=== PATIENT | female | born 1970 | race Caucasian/White ===

== ENCOUNTER → 2016-08-13 | Outpatient (CLI) | payer OTHER ==
--- NOTE | 2016-08-17 08:43 | MM ---
Reason for exam: screening (asymptomatic). Last mammogram was performed 2 years ago. History: Patient history of other cancer. Family history of breast cancer in 3 paternal aunts. Took hormonal contraceptives for 1 year. Physical Findings: A clinical breast exam by your physician is recommended on an annual basis and results should be correlated with mammographic findings. MG Screening Mammo w CAD Bilateral CC and MLO view(s) were taken. Prior study comparison: August 27, 2014, bilateral MG screening mammo w CAD. April 17, 2013, bilateral digital screening mammo w/CAD. Finding: There are typically benign round, grouped calcifications in the lower inner quadrant, middle position of the left breast, stable from 2014. No significant changes in finding since August 27, 2014 and April 17, 2013. ASSESSMENT: Benign, BI-RAD 2 RECOMMENDATION: Routine screening mammogram of both breasts in 1 year.
== END | disposition home or self-care (01) ==
LOC: RADMAMWWP 09:33
PROVIDERS: ATTEND Family Medicine
DX: Z12.31 Encounter for screening mammogram for malignant neoplasm of breast (principal)

== ENCOUNTER → 2016-08-25 | Day surgery (SDC) | payer OTHER ==
[2016-08-24 09:12] VITALS: BMI 43.5
[~2016-08-25] MED LIST: LACTATED RINGERS 1,000 ML IV SCH; LIDOCAINE 1% 20 ML VIAL (10MG/ML) FOR IV START INTRADERMA PRN; LIDOCAINE 1% INJ 10MG/ML (20 ML MDV) ONE; MIDAZOLAM 2 MG/2 ML VIAL ONE; PROPOFOL 10 MG/ML 20 ML VIAL IV ONE; fentaNYL (PF) 50 MCG/ML 2 ML AMP ONE
[2016-08-25 08:54] VITALS: TEMP 97
[2016-08-25 08:57] LABS: Glucose,Whole Blood 129 mg/dL (75-99)
--- NOTE | 2016-08-25 10:14 | P.GSHP ---
History of Present Illness H&P Date: 08/25/16 Chief Complaint: Epigastric abdominal pain This a 46-year-old female referred from Dr. Nielson. Patient with complaints of epigastric abdominal pain. She presents today for EGD. She's had a recent left nephrectomy. - Constitutional Constitutional: Reports as per HPI Past Medical History Past Medical History: Diabetes Mellitus, Hearing Disorder / Deafness, Hypertension, Osteoarthritis (OA), Sleep Apnea/CPAP/BIPAP Additional Past Medical History / Comment(s): MIGRAINE HEADACHE, C PAP, CHRONIC BACK PAIN History of Any Multi-Drug Resistant Organisms: None Reported Past Surgical History: Back Surgery Additional Past Surgical History / Comment(s): perianal surgery, LEFT KIDNEY REMOVED Past Anesthesia/Blood Transfusion Reactions: Family History of Problems w/ Anesthesia, Motion Sickness Additional Past Anesthesia/Blood Transfusion Reaction / Comment(s): BROTHER "IS HARD TO PUT UNDER, AND HARD TO WAKE UP." Past Psychological History: Anxiety, Depression Smoking Status: Former smoker Past Alcohol Use History: Rare Additional Past Alcohol Use History / Comment(s): STARTED SMOKING AT AGE 18 SMOKED ON/OFF 20 YEARS, 1/2 PPD, QUIT 2010. Past Drug Use History: Marijuana Additional Drug Use History / Comment(s): OCC USE FOR PAIN MEDICAL CARD - Past Family History Mother Family Medical History: No Reported History Medications and Allergies Home Medications Medication Instructions Recorded Confirmed Type Diazepam [Valium] 2 mg PO TID PRN 06/26/14 08/25/16 History Bisoprolol-Hctz 5-6.25 mg [Ziac 1 each PO HS 02/11/16 08/25/16 History 5-6.25] Losartan Potassium [Cozaar] 50 mg PO HS 02/11/16 08/25/16 History Venlafaxine HCl ER [Effexor Xr] 150 mg PO HS 02/11/16 08/25/16 History metFORMIN HCL [Glucophage] 500 mg PO BID 08/24/16 08/25/16 History Allergies Allergy/AdvReac Type Severity Reaction Status Date / Time pregabalin [From Lyrica] Allergy SWELLING Verified 08/25/16 08:50 LEG, ANKLES acetaminophen [From Vicodin] AdvReac Rash/Hives Verified 08/25/16 08:50 codeine AdvReac Itching Verified 08/25/16 08:50 [From Tylenol-Codeine #3] gabapentin [From Neurontin] AdvReac FELT Verified 08/25/16 08:50 SLUGGISH, SICK hydrocodone bitartrate AdvReac Rash/Hives Verified 08/25/16 08:50 [From Vicodin] morphine AdvReac Itching Verified 08/25/16 08:50 Penicillins AdvReac Rash/Hives Verified 08/25/16 08:50 Surgical - Exam Vital Signs Temp Pulse BP Pulse Ox 97 F L 78 112/68 98 08/25/16 08:52 08/25/16 08:52 08/25/16 08:52 08/25/16 08:52 - General well developed, no distress - Eyes PERRL - ENT normal pinna - Neck no masses - Respiratory normal expansion - Cardiovascular Rhythm: regular - Abdomen Abdomen: soft, non tender Results - Labs Abnormal Lab Results - Last 24 Hours (Table) 08/25/16 Range/Units 08:53 POC Glucose (mg/dL) 129 H (75-99) mg/dL Assessment and Plan Plan: History of epigastric abdominal pain. We'll perform EGD.
--- NOTE | 2016-08-25 10:27 | P.OP ---
Date of Procedure: 08/25/16 Preoperative Diagnosis: Epigastric abdominal pain Postoperative Diagnosis: Antral gastritis Procedure(s) Performed: EGD Anesthesia: MAC Surgeon: Nico Sommers Pathology: other (Antrum, esophagus) Condition: stable Disposition: PACU Description of Procedure: The patient's placed on the endoscopy table in the lateral position. She received IV sedation. The gastroscope some placed oropharynx and passed into the esophagus and into the stomach. The scope was then placed through the pylorus. The first and second portion of the duodenum appeared normal. Scope was then brought back the antrum and this appeared mildly inflamed a biopsies was performed. The scope was then retroflexed and remainder stomach appeared normal. There was no hiatal hernia seen. The GE junction was at 40 cm. The distal esophagus appeared mildly inflamed a biopsies was performed. The proximal esophagus appeared normal. Scope was withdrawn for patient.
[2016-08-25 10:38] VITALS: BP 115/72; PULSE 61; RESP 16
[2016-08-25 10:45] LABS: Glucose,Whole Blood 112 mg/dL (75-99)
--- NOTE | 2016-08-25 14:21 | NM ---
EXAMINATION TYPE: NM hepatobiliary w EF DATE OF EXAM: 08/25/2016 1:48 PM COMPARISON: CT scan dated 31 January 2016 HISTORY: Abdominal pain TECHNIQUE: After the intravenous administration of 5.03 mCi Tc 99m Mebrofenin hepatobiliary scintigra phy is performed. Immediate images post injection. FINDINGS: There is satisfactory initial accumulation of tracer by the liver. The gallbladder is visualized wit hin 15 minutes. The small bowel activity is noted following Ensure administration. At one hour 8 ou nces of oral ensure plus is given to mimic CCK and gallbladder ejection fraction is calculated at 59 %, in the normal range. Therefore there is no scintigraphic evidence of cystic or common bile duct o bstruction to suggest acute cholecystitis or gallbladder dyskinesia. IMPRESSION: Delayed visualization of the small bowel. Gallbladder ejection fraction within normal bosch its. No cystic duct obstruction
== END ==
LOC: ORWHC2ENDO 08:19
PROVIDERS: ATTEND Surgery
DX: K29.70 Gastritis, unspecified, without bleeding (principal); K20.9 Esophagitis, unspecified; E11.9 Type 2 diabetes mellitus without complications; H91.90 Unspecified hearing loss, unspecified ear; I10 Essential (primary) hypertension; M19.90 Unspecified osteoarthritis, unspecified site; G47.30 Sleep apnea, unspecified; G43.909 Migraine, unspecified, not intractable, without status migrainosus; G89.29 Other chronic pain; F41.9 Anxiety disorder, unspecified; F32.9 Major depressive disorder, single episode, unspecified; E66.01 Morbid (severe) obesity due to excess calories; Z79.84 Long term (current) use of oral hypoglycemic drugs; Z79.899 Other long term (current) drug therapy; Z88.8 Allergy status to other drugs, medicaments and biological substances; Z88.5 Allergy status to narcotic agent; Z88.0 Allergy status to penicillin; Z87.891 Personal history of nicotine dependence
CPT/HCPCS: 81025; 88305; 78226; 43239; A9537; J2250; J2001; J3010; J2704

== ENCOUNTER 2017-07-28 15:41 | Emergency (ER) | payer OTHER ==
[2017-07-28] MEDS ORDERED: SODIUM CHLORIDE 0.9% 1,000 ML IV ONE (15:53)
[2017-07-28 16:00] LABS: Glucose,Whole Blood 182 mg/dL (75-99)
--- NOTE | 2017-07-28 16:00 | ED ---
General Adult HPI - General Chief complaint: Recheck/Abnormal Lab/Rx Stated complaint: Hyperglycemia Time Seen by Provider: 07/28/17 15:47 Source: patient Mode of arrival: ambulatory Limitations: no limitations - History of Present Illness Initial comments: This is a 47-year-old female with a history of diabetes who presents emergency department for generalized malaise and hyperglycemia. She states that the hyperglycemia has been going on for the last week. She states that she has been running in the 200s. She states that she has been under quite a bit of stress over the last week and feels that this may be causing her hyperglycemia. She is unsure if she has had weight gain and she does check her sugars regularly and usually she is below 200. She states that she has not had any nausea, vomiting, or diarrhea. No fevers or chills. No cough or shortness of breath. She does have a history of nephrectomy in the past secondary to renal artery stenosis. She states that she is on metformin 500 mg twice a day and was instructed not to increase this dose because of her history of only having one kidney. She denies any urinary frequency or polydipsia. No other acute complaints. - Related Data Home Medications Medication Instructions Recorded Confirmed Bisoprolol-Hctz 5-6.25 mg [Ziac 1 tab PO HS 02/11/16 07/28/17 5-6.25] Losartan Potassium [Cozaar] 50 mg PO HS 02/11/16 07/28/17 Venlafaxine HCl ER [Effexor Xr] 150 mg PO HS 02/11/16 07/28/17 metFORMIN HCL [Glucophage] 500 mg PO BID 08/24/16 07/28/17 Multivitamin [Multivitamins Adult 2 tab PO HS 07/28/17 07/28/17 Gummies] Allergies Allergy/AdvReac Type Severity Reaction Status Date / Time pregabalin [From Lyrica] Allergy SWELLING Verified 07/28/17 16:15 LEG, ANKLES acetaminophen [From Vicodin] AdvReac Rash/Hives Verified 07/28/17 16:15 codeine AdvReac Itching Verified 07/28/17 16:15 [From Tylenol-Codeine #3] gabapentin [From Neurontin] AdvReac FELT Verified 07/28/17 16:15 SLUGGISH, SICK hydrocodone bitartrate AdvReac Rash/Hives Verified 07/28/17 16:15 [From Vicodin] morphine AdvReac Itching Verified 07/28/17 16:15 Penicillins AdvReac Rash/Hives Verified 07/28/17 16:15 Review of Systems ROS Statement: Those systems with pertinent positive or pertinent negative responses have been documented in the HPI. ROS Other: All systems not noted in ROS Statement are negative. Past Medical History Past Medical History: Diabetes Mellitus, Hearing Disorder / Deafness, Hypertension, Osteoarthritis (OA), Sleep Apnea/CPAP/BIPAP Additional Past Medical History / Comment(s): MIGRAINE HEADACHE, C PAP, CHRONIC BACK PAIN History of Any Multi-Drug Resistant Organisms: None Reported Past Surgical History: Back Surgery Additional Past Surgical History / Comment(s): perianal surgery, LEFT KIDNEY REMOVED Past Anesthesia/Blood Transfusion Reactions: Family History of Problems w/ Anesthesia, Motion Sickness Additional Past Anesthesia/Blood Transfusion Reaction / Comment(s): BROTHER "IS HARD TO PUT UNDER, AND HARD TO WAKE UP." Past Psychological History: Anxiety, Depression Smoking Status: Former smoker Past Alcohol Use History: Rare Past Drug Use History: Marijuana - Past Family History Mother Family Medical History: No Reported History General Exam - General Exam Comments Initial Comments: Constitutional: Awake alert Appears comfortable Head: Normocephalic atraumatic Eyes: no conjunctival injection No scleral icterus EOMI Neck: No JVD Supple Heart: Regular rate rhythm normal S1-S2 no murmurs Lungs: Clear to auscultation bilaterally No wheezing No rales Abdomen: Soft nondistended nontender Extremities: Non edematous DP pulses intact Radial pulses intact Neuro: A&Ox3 No focal neurologic deficits Psych: Appropriate mood and affect Limitations: no limitations Course Vital Signs 07/28/17 15:45 Temperature 98.0 F Pulse Rate 65 Respiratory 18 Rate Blood Pressure 174/82 O2 Sat by Pulse 98 Oximetry Medical Decision Making - Medical Decision Making This 47-year-old female came to the emergency department for hyperglycemia. She was evaluated with blood work which was mostly unremarkable except for some mild hyperglycemia. She was given 1 L of fluid and had significant improvement in her symptoms and felt much better. Her sugar improved to 150 after IV fluids. I encouraged her to drink plenty fluids over the next few days. She is have a follow-up appointment with her primary doctor. She may need to increase her metformin or be started on different medication. Told to return if she had fevers or any worsening signs or symptoms. All questions were answered. - Lab Data Result diagrams: 07/28/17 15:58 07/28/17 15:58 Lab Results 07/28/17 07/28/17 07/28/17 Range/Units 15:55 15:58 15:58 WBC 8.8 (3.8-10.6) k/uL RBC 4.98 (3.80-5.40) m/uL Hgb 13.2 (11.4-16.0) gm/dL Hct 40.0 (34.0-46.0) % MCV 80.3 (80.0-100.0) fL MCH 26.5 (25.0-35.0) pg MCHC 33.0 (31.0-37.0) g/dL RDW 14.7 (11.5-15.5) % Plt Count 253 (150-450) k/uL Neutrophils % 65 % Lymphocytes % 26 % Monocytes % 5 % Eosinophils % 4 % Basophils % 1 % Neutrophils # 5.7 (1.3-7.7) k/uL Lymphocytes # 2.2 (1.0-4.8) k/uL Monocytes # 0.4 (0-1.0) k/uL Eosinophils # 0.3 (0-0.7) k/uL Basophils # 0.0 (0-0.2) k/uL Sodium 139 (137-145) mmol/L Potassium 4.5 (3.5-5.1) mmol/L Chloride 104 (98-107) mmol/L Carbon Dioxide 23 (22-30) mmol/L Anion Gap 12 mmol/L BUN 18 H (7-17) mg/dL Creatinine 0.90 (0.52-1.04) mg/dL Est GFR (CKD-EPI)AfAm 89 (>60 ml/min/1.73 sqM) Est GFR (CKD-EPI)NonAf 77 (>60 ml/min/1.73 sqM) Glucose 201 H (74-99) mg/dL POC Glucose (mg/dL) 182 H (75-99) mg/dL POC Glu Workforce Advisor ID Alex Carrera Calcium 9.2 (8.4-10.2) mg/dL Total Bilirubin 0.4 (0.2-1.3) mg/dL AST 24 (14-36) U/L ALT 31 (9-52) U/L Alkaline Phosphatase 122 (38-126) U/L Total Protein 7.1 (6.3-8.2) g/dL Albumin 3.8 (3.5-5.0) g/dL Urine Color Urine Appearance (Clear) Urine pH (5.0-8.0) Ur Specific [place] (1.001-1.035) Urine Protein (Negative) Urine Glucose (UA) (Negative) Urine Ketones (Negative) Urine Blood (Negative) Urine Nitrite (Negative) Urine Bilirubin (Negative) Urine Urobilinogen (<2.0) mg/dL Ur Leukocyte Esterase (Negative) Urine RBC (0-5) /hpf Urine WBC (0-5) /hpf Ur Squamous Epith Cells (0-4) /hpf Amorphous Sediment (None) /hpf Urine Bacteria (None) /hpf Urine Mucus (None) /hpf Urine HCG, Qual (Not Detectd) 07/28/17 07/28/17 Range/Units 15:58 15:58 WBC (3.8-10.6) k/uL RBC (3.80-5.40) m/uL Hgb (11.4-16.0) gm/dL Hct (34.0-46.0) % MCV (80.0-100.0) fL MCH (25.0-35.0) pg MCHC (31.0-37.0) g/dL RDW (11.5-15.5) % Plt Count (150-450) k/uL Neutrophils % % Lymphocytes % % Monocytes % % Eosinophils % % Basophils % % Neutrophils # (1.3-7.7) k/uL Lymphocytes # (1.0-4.8) k/uL Monocytes # (0-1.0) k/uL Eosinophils # (0-0.7) k/uL Basophils # (0-0.2) k/uL Sodium (137-145) mmol/L Potassium (3.5-5.1) mmol/L Chloride (98-107) mmol/L Carbon Dioxide (22-30) mmol/L Anion Gap mmol/L BUN (7-17) mg/dL Creatinine (0.52-1.04) mg/dL Est GFR (CKD-EPI)AfAm (>60 ml/min/1.73 sqM) Est GFR (CKD-EPI)NonAf (>60 ml/min/1.73 sqM) Glucose (74-99) mg/dL POC Glucose (mg/dL) (75-99) mg/dL POC Glu Workforce Advisor ID Calcium (8.4-10.2) mg/dL Total Bilirubin (0.2-1.3) mg/dL AST (14-36) U/L ALT (9-52) U/L Alkaline Phosphatase (38-126) U/L Total Protein (6.3-8.2) g/dL Albumin (3.5-5.0) g/dL Urine Color Yellow Urine Appearance Clear (Clear) Urine pH 5.5 (5.0-8.0) Ur Specific [place] 1.021 (1.001-1.035) Urine Protein Negative (Negative) Urine Glucose (UA) Trace H (Negative) Urine Ketones Negative (Negative) Urine Blood Small H (Negative) Urine Nitrite Negative (Negative) Urine Bilirubin Negative (Negative) Urine Urobilinogen <2.0 (<2.0) mg/dL Ur Leukocyte Esterase Negative (Negative) Urine RBC 1 (0-5) /hpf Urine WBC 1 (0-5) /hpf Ur Squamous Epith Cells 5 H (0-4) /hpf Amorphous Sediment Rare H (None) /hpf Urine Bacteria Occasional H (None) /hpf Urine Mucus Rare H (None) /hpf Urine HCG, Qual Not Detected (Not Detectd) Disposition Clinical Impression: Hyperglycemia Disposition: HOME SELF-CARE Condition: Stable Instructions: Diabetic Hyperglycemia (ED) Additional Instructions: CAll your doctor for follow up appointment and to check A1C. Drink plenty of fluids. Check sugars 3x/day. Referrals: Donovan Nielson MD [Primary Care Provider] - 1-2 days
[2017-07-28 16:09] LABS: Basophils % (A) 1 %; Eosinophils # (A) 0.3 k/uL (0-0.7); Eosinophils % (A) 4 %; HGB 13.2 gm/dL (11.4-16.0); Lymphocytes # (A) 2.2 k/uL (1.0-4.8); Lymphocytes % (A) 26 %; MCH 26.5 pg (25.0-35.0); MCV 80.3 fL (80.0-100.0); Mean Platelet Volume 7.3; Monocytes # (A) 0.4 k/uL (0-1.0); Monocytes % (A) 5 %; Neutrophils # (A) 5.7 k/uL (1.3-7.7); Neutrophils % (A) 65 %; Platelet Count 253 k/uL (150-450); RBC 4.98 m/uL (3.80-5.40); RDW 14.7 % (11.5-15.5); WBC 8.8 k/uL (3.8-10.6)
[2017-07-28 16:18] LABS: Albumin 3.8 g/dL (3.5-5.0); Calcium 9.2 mg/dL (8.4-10.2); Potassium 4.5 mmol/L (3.5-5.1); Total Bilirubin 0.4 mg/dL (0.2-1.3); Total Protein 7.1 g/dL (6.3-8.2)
[2017-07-28 16:31] LABS: Amorphous Sediment,Urine Rare /hpf; Appearance,Urine Clear (Clear); Bacteria,Urine Occasional /hpf; Bilirubin,Urine Negative (Negative); Blood,Urine Small (Negative); Color,Urine Yellow; Glucose,Urine (UA) Trace (Negative); Ketones,Urine Negative (Negative); Leukocyte Esterase,Urine Negative (Negative); Mucus,Urine Rare /hpf; Nitrite,Urine Negative (Negative); PH, Urine 5.5 (5.0-8.0); Protein,Urine Negative (Negative); RBC,Urine 1 /hpf (0-5); Specific Gravity,Urine 1.021 (1.001-1.035); Squamous Epithelial Cell,Urine 5 /hpf (0-4); Urobilinogen,Urine <2.0 mg/dL (<2.0); WBC,Urine 1 /hpf (0-5)
[2017-07-28 17:12] LABS: Glucose,Whole Blood 152 mg/dL (75-99)
[2017-07-28 17:13] VITALS: BP 152/87; PULSE 75; RESP 16; TEMP 97.7
== END 2017-07-28 17:22 | disposition home or self-care (01) ==
LOC: EC 15:41
DX: E11.65 Type 2 diabetes mellitus with hyperglycemia (principal); I10 Essential (primary) hypertension; I70.1 Atherosclerosis of renal artery; F41.9 Anxiety disorder, unspecified; F32.9 Major depressive disorder, single episode, unspecified; G47.30 Sleep apnea, unspecified; Z99.89 Dependence on other enabling machines and devices; Z87.891 Personal history of nicotine dependence; Z90.5 Acquired absence of kidney; Z79.84 Long term (current) use of oral hypoglycemic drugs; Z79.899 Other long term (current) drug therapy; Z88.8 Allergy status to other drugs, medicaments and biological substances; Z88.6 Allergy status to analgesic agent; Z88.5 Allergy status to narcotic agent; Z88.0 Allergy status to penicillin
CPT/HCPCS: 36415; 80053; 81001; 81025; 85025; 96360; 99284

== ENCOUNTER → 2017-09-23 | Outpatient (CLI) | payer OTHER ==
--- NOTE | 2017-09-24 09:15 | MM ---
Reason for exam: screening (asymptomatic). Last mammogram was performed 1 year and 1 month ago. History: Patient history of other cancer. Family history of breast cancer in 3 paternal aunts. Took hormonal contraceptives for 1 year. Physical Findings: A clinical breast exam by your physician is recommended on an annual basis and results should be correlated with mammographic findings. MG Screening Mammo w CAD Bilateral CC and MLO view(s) were taken. Prior study comparison: August 13, 2016, bilateral MG screening mammo w CAD. August 27, 2014, bilateral MG screening mammo w CAD. The breast tissue is heterogeneously dense. This may lower the sensitivity of mammography. Finding: There are typically benign round, grouped/clustered calcifications in the lower inner quadrant, middle position of the left breast. Asymmetric breast tissue in the right inferior breast. There is no discrete abnormality. ASSESSMENT: Benign, BI-RAD 2 RECOMMENDATION: Routine screening mammogram of both breasts in 1 year.
== END | disposition home or self-care (01) ==
LOC: RADMAMWWP 14:26
PROVIDERS: ATTEND Family Medicine
DX: Z12.31 Encounter for screening mammogram for malignant neoplasm of breast (principal)
CPT/HCPCS: 77067

== ENCOUNTER 2018-09-17 18:16 | Emergency (ER) | payer OTHER ==
[2018-09-17 18:24] VITALS: BP 158/94; PULSE 72; RESP 16; TEMP 98.3
[2018-09-17] MEDS ORDERED: CYCLOBENZAPRINE 10 MG TAB PO STA (18:45)
[2018-09-17] MEDS ORDERED: oxyCODONE-APAP 5-325MG 1 EACH TAB PO STA (18:55)
--- NOTE | 2018-09-17 19:17 | XR ---
Lumbar spine HISTORY: Chronic back pain 3 views of the lumbar spine There is a mild spinal curvature. There is multilevel spondylosis. Lumbar vertebral bodies show prese rved height. Minimal retrolisthesis grade 1 L3-4, L4-5. Loss of disc height L4-5, L2-3. Sclerosis in the posterior elements is noted. IMPRESSION: Degenerative disc disease and facet arthropathy. Mild spinal curvature.
--- NOTE | 2018-09-17 19:18 | ED ---
General Adult HPI - General Source: patient, RN notes reviewed, old records reviewed Mode of arrival: wheelchair Limitations: no limitations <Elias Crawford - Last Filed: 09/17/18 19:51> <Muna oNgueira - Last Filed: 09/19/18 07:45> - General Chief complaint: Back Pain/Injury Stated complaint: Back pain Time Seen by Provider: 09/17/18 18:26 - History of Present Illness Initial comments: 48-year-old female patient presents to ED with right paralumbar back spasms. Patient states that she has chronic lumbar back pain and occasionally has the focal disimpacted back spasms. Patient reports that has been going on for approximately 3 days. States that she had a fall approximately one month ago. However denies any recent falls or trauma. Patient states she did not suffer any injuries that time. Patient denies any loss of bowel or bladder control, saddle anesthesia, lower extremity weakness, paresthesias. Systemic: Pt denies fatigue, myalgia, fever/chills, rash. Pt denies weakness, night sweats, weight loss. Neuro: Pt denies headache, visual disturbances, syncope or pre-syncope. HEENT: Pt denies ocular discharge or irritation, otalgia, rhinorrhea, pharyngitis or notable lymphadenopathy. Cardiopulmonary: Pt denies chest pain, SOB, heart palpitations, dyspnea on exertion. Abdominal/GI: Pt denies abdominal pain, n/v/d. : Pt denies dysuria, burning w/ urination, frequency/urgency. Denies new onset urinary or bowel incontinence. MSK: Pt denies myalgia, loss of strength or function in extremities. Neuro: Pt denies new onset weakness, paresthesias. (Elias Crawford) - Related Data Home Medications Medication Instructions Recorded Confirmed Bisoprolol-Hctz 5-6.25 mg [Ziac 1 tab PO HS 02/11/16 09/17/18 5-6.25] Losartan Potassium [Cozaar] 50 mg PO HS 02/11/16 09/17/18 Venlafaxine HCl ER [Effexor Xr] 150 mg PO HS 02/11/16 09/17/18 metFORMIN HCL [Glucophage] 500 mg PO BID 08/24/16 09/17/18 Multivitamin [Multivitamins Adult 2 tab PO HS 07/28/17 09/17/18 Gummies] Previous Rx's Medication Instructions Recorded Cyclobenzaprine [Flexeril] 10 mg PO TID #20 tab 09/17/18 predniSONE 50 mg PO DAILY #4 tab 09/17/18 Allergies Allergy/AdvReac Type Severity Reaction Status Date / Time pregabalin [From Lyrica] Allergy SWELLING Verified 09/17/18 18:31 LEG, ANKLES acetaminophen [From Vicodin] AdvReac Rash/Hives Verified 09/17/18 18:31 codeine AdvReac Itching Verified 09/17/18 18:31 [From Tylenol-Codeine #3] gabapentin [From Neurontin] AdvReac FELT Verified 09/17/18 18:31 SLUGGISH, SICK hydrocodone bitartrate AdvReac Rash/Hives Verified 09/17/18 18:31 [From Vicodin] morphine AdvReac Itching Verified 09/17/18 18:31 Penicillins AdvReac Rash/Hives Verified 09/17/18 18:31 Review of Systems ROS Other: All systems not noted in ROS Statement are negative. <Elias Crawford - Last Filed: 09/17/18 19:51> ROS Other: All systems not noted in ROS Statement are negative. <Muna Nogueira - Last Filed: 09/19/18 07:45> ROS Statement: Those systems with pertinent positive or pertinent negative responses have been documented in the HPI. Past Medical History Past Medical History: Diabetes Mellitus, Hearing Disorder / Deafness, Hypertension, Osteoarthritis (OA), Sleep Apnea/CPAP/BIPAP Additional Past Medical History / Comment(s): MIGRAINE HEADACHE, C PAP, CHRONIC BACK PAIN History of Any Multi-Drug Resistant Organisms: None Reported Past Surgical History: Back Surgery Additional Past Surgical History / Comment(s): perianal surgery, LEFT KIDNEY REMOVED Past Anesthesia/Blood Transfusion Reactions: Family History of Problems w/ Anesthesia, Motion Sickness Additional Past Anesthesia/Blood Transfusion Reaction / Comment(s): BROTHER "IS HARD TO PUT UNDER, AND HARD TO WAKE UP." Past Psychological History: Anxiety, Depression Smoking Status: Former smoker Past Alcohol Use History: Rare Past Drug Use History: Marijuana - Past Family History Mother Family Medical History: No Reported History <Elias Crawford - Last Filed: 09/17/18 19:51> General Exam Limitations: no limitations <Elias Crawford - Last Filed: 09/17/18 19:51> - General Exam Comments Initial Comments: Constitutional: NAD, AOX3, Pt has pleasant affect. HEENT: NC/AT, trachea midline, neck supple, no lymphadenopathy. Posterior pharynx non erythematous, without exudates. External ears appear normal, without discharge. Mucous membranes moist. Eyes PERRLA, EOM intact. There is no scleral icterus. No pallor noted. Cardiopulmonary: RRR, no murmurs, rubs or gallops, no JVD noted. Lungs CTAB in anterior and posterior zhu. No peripheral edema. Abdominal exam: Abdomen soft and non-distended. Abdomen non-tender to palpation in all 4 quadrants. Bowel sounds active in LLQ. No hepatosplenomegaly. No ecchymosis Neuro: CN II-XII grossly intact. No nuchal rigidity. MSK: Right paralumbar region mildly tender to palpation. No midline cervical thoracic lumbar tenderness to palpation. 5 out of 5 strength quadriceps and psoas muscles. Patient is ambulatory. Right straight leg raise positve, L straight leg raise negative. No posterior calf tenderness bilaterally, homans sign negative bilaterally. Posterior tibialis and radial pulse +2 bilaterally. Sensation intact in upper and lower extremities. Full active ROM in upper and lower extremities, 5/5 stregnth. (Elias Crawford) Course Vital Signs 09/17/18 18:22 Temperature 98.3 F Pulse Rate 72 Respiratory 16 Rate Blood Pressure 158/94 O2 Sat by Pulse 99 Oximetry Medical Decision Making <Elias Crawford - Last Filed: 09/17/18 19:51> <Muna Nogueira - Last Filed: 09/19/18 07:45> - Medical Decision Making 48-year-old female patient presents to ED with right paralumbar back spasms. Patient states that she has chronic lumbar back pain and occasionally has the focal disimpacted back spasms. Patient reports that has been going on for approximately 3 days. States that she had a fall approximately one month ago. However denies any recent falls or trauma. Patient states she did not suffer any injuries that time. Patient denies any loss of bowel or bladder control, saddle anesthesia, lower extremity weakness, paresthesias. Patient vital signs stable, afebrile. Physical exam displayed: Right paralumbar region mildly tender to palpation. No midline cervical thoracic lumbar tenderness to palpation. 5 out of 5 strength quadriceps and psoas muscles. Patient is ambulatory. Plain film of lumbar spine displayed degenerative disc disease and facet arthropathy. Mild spinal curvature. Patient aware of these findings previously. Patient pain control to ED. Patient discharged with muscle relaxer and steroids. Patient return here if condition worsens. Patient given orthopedic referral to follow-up in 1-2 days. Case discussed with Dr. Nogueira. (Elias Crawford) I was available for consultation in the emergency department. The history and physical exam were done by the midlevel provider. I was consulted for this patient's care. I reviewed the case with the midlevel provider and based on their presentation of the patient, I agree with the assessment, medical decision making and plan of care as documented. Chart was dictated using [employer] dictation software. Attempts were made to correct any dictation errors however some typographical errors may persist. (Muna Morfin) Disposition Is patient prescribed a controlled substance at d/c from ED?: No <Elias Crawford - Last Filed: 09/17/18 19:51> <Muna Nogueira - Last Filed: 09/19/18 07:45> Clinical Impression: Muscle spasm, Chronic lumbar pain Disposition: HOME SELF-CARE Condition: Stable Instructions (If sedation given, give patient instructions): Low Back Strain (ED), Acute Low Back Pain (ED), Chronic Back Pain (DC) Additional Instructions: Patient to adhere to previously discussed treatment plan and will take medication(s) as directed. Patient to follow up with PCP in 1-2 days. Patient to return to ED if symptoms do not improve. Take medication as prescribed. Follow up with primary care provider in 1-2days. Follow up with orthopedic consult in 1-2 days. Prescriptions: Cyclobenzaprine [Flexeril] 10 mg PO TID #20 tab predniSONE 50 mg PO DAILY #4 tab Referrals: Donovan Nielson MD [Primary Care Provider] - 1-2 days Trent Muir DO [Medical Doctor] - 1-2 days
[2018-09-17] MEDS ORDERED: predniSONE 50 MG TAB PO STA (19:51)
== END 2018-09-17 20:00 | disposition home or self-care (01) ==
LOC: EC 18:16
DX: M62.830 Muscle spasm of back (principal); G89.29 Other chronic pain; M51.36 Other intervertebral disc degeneration, lumbar region; M46.96 Unspecified inflammatory spondylopathy, lumbar region; M43.8X6 Other specified deforming dorsopathies, lumbar region; E11.9 Type 2 diabetes mellitus without complications; I10 Essential (primary) hypertension; G47.30 Sleep apnea, unspecified; H91.90 Unspecified hearing loss, unspecified ear; F32.9 Major depressive disorder, single episode, unspecified; F41.9 Anxiety disorder, unspecified; Z87.891 Personal history of nicotine dependence; Z88.0 Allergy status to penicillin; Z88.5 Allergy status to narcotic agent; Z88.6 Allergy status to analgesic agent; Z88.8 Allergy status to other drugs, medicaments and biological substances; Z79.84 Long term (current) use of oral hypoglycemic drugs; Z79.899 Other long term (current) drug therapy; Z98.890 Other specified postprocedural states; Z99.89 Dependence on other enabling machines and devices; Z91.81 History of falling
CPT/HCPCS: 72100; 99284; J7512

== ENCOUNTER → 2018-11-02 | Outpatient (CLI) | payer OTHER ==
--- NOTE | 2018-11-04 14:40 | MM ---
Reason for exam: screening (asymptomatic). Last mammogram was performed 1 year and 1 month ago. History: Patient history of other cancer. Family history of breast cancer in 3 paternal aunts. Took hormonal contraceptives for 1 year. Physical Findings: A clinical breast exam by your physician is recommended on an annual basis and results should be correlated with mammographic findings. MG Screening Mammo w CAD Bilateral CC and MLO view(s) were taken. Prior study comparison: September 23, 2017, bilateral MG screening mammo w CAD. August 13, 2016, bilateral MG screening mammo w CAD. There are scattered fibroglandular densities. Finding: There are typically benign round, grouped/clustered calcifications in the lower inner quadrant, middle position of the left breast. No significant changes in finding since September 23, 2017 and August 13, 2016. ASSESSMENT: Benign, BI-RAD 2 RECOMMENDATION: Routine screening mammogram of both breasts in 1 year.
== END | disposition home or self-care (01) ==
LOC: RADMAMWWP 11:42
PROVIDERS: ATTEND Family Medicine
DX: Z12.31 Encounter for screening mammogram for malignant neoplasm of breast (principal)
CPT/HCPCS: 77067

== ENCOUNTER 2019-02-14 16:39 | Emergency (ER) | payer OTHER ==
[2019-02-14 16:48] VITALS: BP 129/88; PULSE 76; RESP 18; TEMP 97.4
[2019-02-14 16:49] LABS: Glucose,Whole Blood 298 mg/dL (75-99)
== END 2019-02-14 18:20 | disposition left against medical advice (07) ==
LOC: EC 16:39
DX: R73.9 Hyperglycemia, unspecified (principal); Z53.21 Procedure and treatment not carried out due to patient leaving prior to being seen by health care provider
CPT/HCPCS: 36415; 99499

== ENCOUNTER → 2019-12-08 | Outpatient (CLI) | payer OTHER ==
--- NOTE | 2019-12-11 09:54 | MM ---
Reason for exam: screening (asymptomatic). Last mammogram was performed 1 year and 1 month ago. History: Patient history of other cancer. Family history of breast cancer in 3 paternal aunts. Took hormonal contraceptives for 1 year. Physical Findings: A clinical breast exam by your physician is recommended on an annual basis and results should be correlated with mammographic findings. MG Screening Mammo w CAD Bilateral CC and MLO view(s) were taken. Prior study comparison: November 02, 2018, bilateral MG screening mammo w CAD. September 23, 2017, bilateral MG screening mammo w CAD. The breast tissue is heterogeneously dense. This may lower the sensitivity of mammography. Stable benign calcifications. There is no discrete abnormality. No significant changes when compared with prior studies. ASSESSMENT: Benign, BI-RAD 2 RECOMMENDATION: Routine screening mammogram of both breasts in 1 year.
== END | disposition home or self-care (01) ==
LOC: RADMAMWWP 09:08
PROVIDERS: ATTEND Family Medicine
DX: Z12.31 Encounter for screening mammogram for malignant neoplasm of breast (principal); Z80.3 Family history of malignant neoplasm of breast
CPT/HCPCS: 77067

== ENCOUNTER → 2019-12-20 | Outpatient (CLI) | payer OTHER ==
[2019-12-20 17:03] LABS: Appearance,Urine Clear (Clear); Bilirubin,Urine Negative (Negative); Blood,Urine Negative (Negative); Color,Urine Yellow; Glucose,Urine (UA) Negative (Negative); Ketones,Urine Negative (Negative); Leukocyte Esterase,Urine Negative (Negative); Nitrite,Urine Negative (Negative); PH, Urine 5.5 (5.0-8.0); Protein,Urine Negative (Negative); Specific Gravity,Urine 1.019 (1.001-1.035); Urobilinogen,Urine <2.0 mg/dL (<2.0)
[2019-12-21 00:11] LABS: Protein, Total 6.8 g/dL (6.2-8.2)
[2019-12-21 00:32] LABS: Thyroid Peroxidase Antibodies 33.5 U/mL (0.0-60.0)
[2019-12-21 00:35] LABS: African American GFR (CKD) 61.5 (60.0-200.0); BUN/Creat Ratio 14.17 Ratio (12.00-20.00); Potassium 4.1 mmol/L (3.5-5.5)
[2019-12-21 00:50] LABS: T4, Free (Free Thyroxine) 0.9 ng/dL (0.80-1.80)
[2019-12-22 14:18] LABS: Albumin 3.86 g/dL (3.80-4.90); Gamma Globulin 1.09 g/dL (0.70-1.50)
== END | disposition home or self-care (01) ==
LOC: LABWHC1 16:13
PROVIDERS: ATTEND Family Medicine
DX: F34.1 Dysthymic disorder (principal); N18.3 Chronic kidney disease, stage 3 (moderate)
CPT/HCPCS: 36415; 80048; 81003; 84165; 84439; 84443; 86038; 86334; 86376

== ENCOUNTER → 2020-02-09 | Outpatient (CLI) | payer OTHER ==
--- NOTE | 2020-02-09 15:56 | XR ---
EXAMINATION TYPE: XR bone survey complete DATE OF EXAM: 02/09/2020 COMPARISON: NONE HISTORY: Bone survey Calvarium appears intact. Upper extremities have a normal appearance. Cervical spine demonstrates reversal of normal cervical lordosis is multilevel hypertrophic changes. Hypertrophic and degenerative change of the breast sec and lumbar spine noted. Pedicles intact. No de finable osseous lesions. AP view of the pelvis demonstrates hypertrophic arthropathy of the hips. No definable lesions. Images of the lower extremities demonstrate no definable lesions. IMPRESSION: No osseous lesions identified.
== END | disposition home or self-care (01) ==
LOC: RADXRMAIN 14:30
PROVIDERS: ATTEND Internal Medicine Hematology & Oncology
DX: I12.9 Hypertensive chronic kidney disease with stage 1 through stage 4 chronic kidney disease, or unspecified chronic kidney disease (principal); N18.9 Chronic kidney disease, unspecified; E11.9 Type 2 diabetes mellitus without complications; D47.2 Monoclonal gammopathy
CPT/HCPCS: 77075

== ENCOUNTER → 2020-06-27 | Outpatient (CLI) | payer OTHER ==
[2020-06-27 10:57] LABS: Basophils % (A) 0 %; Eosinophils # (A) 0.2 k/uL (0-0.7); Eosinophils % (A) 2 %; HCT 42.7 % (34.0-46.0); HGB 14.1 gm/dL (11.4-16.0); Lymphocytes # (A) 2.2 k/uL (1.0-4.8); Lymphocytes % (A) 16 %; MCH 27.3 pg (25.0-35.0); MCHC 33.1 g/dL (31.0-37.0); MCV 82.6 fL (80.0-100.0); Monocytes # (A) 0.6 k/uL (0-1.0); Monocytes % (A) 4 %; Neutrophils # (A) 10.8 k/uL (1.3-7.7); Neutrophils % (A) 78 %; Platelet Count 229 k/uL (150-450); RBC 5.17 m/uL (3.80-5.40); RDW 14.6 % (11.5-15.5); WBC 13.9 k/uL (3.8-10.6)
[2020-06-27 12:24] LABS: Albumin 3.9 g/dL (3.5-5.0); Calcium 8.9 mg/dL (8.4-10.2); Total Bilirubin 0.5 mg/dL (0.2-1.3); Total Protein 6.8 g/dL (6.3-8.2); Uric Acid 7.3 mg/dL (3.7-7.4)
[2020-06-27 12:40] LABS: T4, Free (Free Thyroxine) 0.89 ng/dL (0.78-2.19)
[2020-06-27 12:41] LABS: Potassium 4.3 mmol/L (3.5-5.1)
--- NOTE | 2020-06-27 13:09 | MR ---
EXAMINATION TYPE: MR lumbar spine wo con DATE OF EXAM: 06/27/2020 COMPARISON: Lumbar spine x-ray dated 09/17/2018. HISTORY: Lower back pain into left hip and down left leg, left foot drop. History of back surgery 201 1. TECHNIQUE: Multiplanar, multisequence imaging of the lumbar spine is performed without IV contrast. FINDINGS: Sagittal images of the lumbar spine show vertebral body heights to remain satisfactory. The re is persistent grade 1 retrolisthesis L3 on L4. Multilevel disc desiccation moderate to borderline severe disc space narrowing L2-L3 level with heterogeneous Modic type II endplate changes and moderat e anterior spurring. Oxml-hr-ongenaht disc space narrowing and vacuum disc phenomenon L3-L4 and L4-L5 levels.. The conus medullaris is normal in position and signal ending superior L1 level. Axial images at T12-L1 level appear within normal limits. Axial images at L1-L2 level show mild broad disc bulge with central disc protrusion component mildly effaces the anterior thecal sac, patent bilateral neural foramina. Axial images at L2-L3 level show mild/moderate broad disc bulge with right foraminal disc protrusion component effacing anterior thecal sac and causing [id number]-[id number] right-sided anterior inferior darcy ral foraminal narrowing. Patent left-sided neural foramina. Axial images at L3-L4 level show spondylolisthesis with broad-based right paracentral/foraminal disc protrusion and mild facet arthropathy bilaterally. There is effacement of the anterolateral thecal sa c and xqjx-ed-twrwmeod right-sided inferior neural foraminal narrowing. Left-sided neural foramen is patent. There is suggestion of inferior disc extrusion into the left paracentral region on axial imag es 10 through 12 corresponding to sagittal image 8 effacing anterior thecal sac. Axial images at the L4-L5 level show moderate 2 advanced left greater right facet degenerative change s bilaterally. There is mild to moderate broad disc bulge with left lateral disc protrusion component . There is effacement of the left anterolateral thecal sac, there is severe left-sided neural foramin al narrowing with encroachment left L4 nerve axial image 7 and sagittal image 5. Right-sided neural f oramina shows mild narrowing. Axial images at L5-S1 level show moderate facet degenerative changes bilaterally. Tiny central disc p rotrusion with spinal canal is preserved as there is increased epidural fat. The bilateral neural for wild. Paraspinal muscle bulk is maintained. IMPRESSION: Spondylolisthesis L3-L4 level. Multilevel degenerative changes in the lumbar spine greate st at L2-L3 through L4-L5 levels as detailed above. Attention to the L4-L5 level where disc herniatio n along with moderate to severe facet arthropathy causes advanced left-sided neural foraminal narrowi ng and effacement of the foraminal left L4 nerve believed to be accounting for patient's left-sided r adiculopathy type symptoms.
[2020-06-28 03:32] LABS: Hemoglobin A1C 6.3 % (4.0-6.0)
== END | disposition home or self-care (01) ==
LOC: RADMRIMAIN 10:00
PROVIDERS: ATTEND Family Medicine
DX: M48.061 Spinal stenosis, lumbar region without neurogenic claudication (principal); M51.26 Other intervertebral disc displacement, lumbar region; M43.16 Spondylolisthesis, lumbar region; M47.816 Spondylosis without myelopathy or radiculopathy, lumbar region; E11.65 Type 2 diabetes mellitus with hyperglycemia; I12.9 Hypertensive chronic kidney disease with stage 1 through stage 4 chronic kidney disease, or unspecified chronic kidney disease; N18.31 Chronic kidney disease, stage 3a
CPT/HCPCS: 72148; 80053; 80061; 82550; 82607; 83036; 83735; 84439; 84443; 84550; 85025

== ENCOUNTER → 2020-10-02 | Outpatient (CLI) | payer OTHER ==
[2020-10-02 22:43] LABS: Basophils # (A) 0.04 X 10*3/uL (0.00-0.10); Basophils % (A) 0.4 %; Eosinophils # (A) 0.35 X 10*3/uL (0.04-0.35); Eosinophils % (A) 3.9 %; HCT 39.8 % (37.2-46.3); HGB 12.9 g/dL (12.0-15.0); Lymphocytes # (A) 2.01 X 10*3/uL (0.90-5.00); Lymphocytes % (A) 22.1 %; MCH 27.7 pg (27.0-32.0); MCHC 32.4 g/dL (32.0-37.0); MCV 85.4 fL (80.0-97.0); Mean Platelet Volume 11.6 fL (9.5-12.2); Monocytes # (A) 0.45 X 10*3/uL (0.20-1.00); Neutrophils # (A) 6.22 X 10*3/uL (1.80-7.70); Neutrophils % (A) 68.4 %; Platelet Count 150 X 10*3/uL (140-440); RBC 4.66 X 10*6/uL (4.10-5.20); RDW 13.6 % (11.5-14.5); WBC 9.09 X 10*3/uL (4.50-10.00)
[2020-10-03 01:52] LABS: Hemoglobin A1C 6.4 % (4.0-6.0)
[2020-10-03 03:27] LABS: Albumin 4.1 g/dL (3.80-4.90); Albumin/Globulin Ratio 1.46 (1.60-3.17); Anion Gap 10.3 mmol/L (4.00-12.00); BUN/Creat Ratio 15.83 Ratio (12.00-20.00); Calcium 9.4 mg/dL (8.7-10.3); Carbon Dioxide 23.7 mmol/L (21.6-31.8); Globulin 2.8 g/dL (1.6-3.3); Non-African American GFR(CKD) 52.7 (60.0-200.0); Potassium 3.7 mmol/L (3.5-5.5); Total Bilirubin 0.3 mg/dL (0.2-1.2); Total Protein 6.9 g/dL (6.2-8.2)
== END | disposition home or self-care (01) ==
LOC: LABWHC1 15:39
PROVIDERS: ATTEND Family Medicine
DX: I12.9 Hypertensive chronic kidney disease with stage 1 through stage 4 chronic kidney disease, or unspecified chronic kidney disease (principal); E11.22 Type 2 diabetes mellitus with diabetic chronic kidney disease; N18.30 Chronic kidney disease, stage 3 unspecified; E11.65 Type 2 diabetes mellitus with hyperglycemia
CPT/HCPCS: 36415; 80053; 82550; 83036; 84443; 85025

== ENCOUNTER → 2021-01-28 | Outpatient (CLI) | payer OTHER ==
[2021-01-28 11:51] LABS: Basophils # (A) 0.04 X 10*3/uL (0.00-0.10); Basophils % (A) 0.6 %; Eosinophils # (A) 0.42 X 10*3/uL (0.04-0.35); Eosinophils % (A) 6.1 %; HCT 41.3 % (37.2-46.3); Lymphocytes # (A) 1.62 X 10*3/uL (0.90-5.00); Lymphocytes % (A) 23.6 %; MCH 26.7 pg (27.0-32.0); MCHC 31.5 g/dL (32.0-37.0); MCV 84.8 fL (80.0-97.0); Mean Platelet Volume 11.1 fL (9.5-12.2); Monocytes # (A) 0.42 X 10*3/uL (0.20-1.00); Monocytes % (A) 6.1 %; Neutrophils # (A) 4.34 X 10*3/uL (1.80-7.70); Neutrophils % (A) 63.2 %; Platelet Count 193 X 10*3/uL (140-440); RBC 4.87 X 10*6/uL (4.10-5.20); RDW 14.4 % (11.5-14.5); WBC 6.87 X 10*3/uL (4.50-10.00)
[2021-01-28 17:58] LABS: Chol/HDL Ratio 4.5 Ratio; HDL Cholesterol 35.8 mg/dL (40.00-60.00); LDL Cholesterol,Calculated 85.6 mg/dL (0.0-131.0); T4, Free (Free Thyroxine) 0.97 ng/dL (0.800-1.800); VLDL Calculation 39.6 mg/dL (5.00-40.00)
[2021-01-28 18:27] LABS: Albumin 4.2 g/dL (3.8-4.9); Albumin/Globulin Ratio 1.62 (1.60-3.17); Anion Gap 13.2 mmol/L (4.00-12.00); BUN/Creat Ratio 15.88 Ratio (12.00-20.00); Blood Urea Nitrogen 13.1 mg/dL (9.0-27.0); Calcium 9.1 mg/dL (8.7-10.3); Carbon Dioxide 22.8 mmol/L (21.6-31.8); Globulin 2.6 g/dL (1.6-3.3); Non-African American GFR(CKD) 82.8 (60.0-200.0); Potassium 4.3 mmol/L (3.5-5.5); Total Bilirubin 0.3 mg/dL (0.30-1.20); Total Protein 6.8 g/dL (6.2-8.2)
== END | disposition home or self-care (01) ==
LOC: LABWHC1 08:06
PROVIDERS: ATTEND Family Medicine
DX: E11.65 Type 2 diabetes mellitus with hyperglycemia (principal); M54.32 Sciatica, left side
CPT/HCPCS: 36415; 80053; 80061; 82550; 82607; 83036; 84439; 84443; 85025

== ENCOUNTER → 2021-03-28 | Outpatient (CLI) | payer OTHER ==
[2021-03-29 00:29] LABS: Basophils # (A) 0.05 X 10*3/uL (0.00-0.10); Basophils % (A) 0.6 %; Eosinophils # (A) 0.44 X 10*3/uL (0.04-0.35); Eosinophils % (A) 4.9 %; HCT 42.5 % (37.2-46.3); HGB 13.3 g/dL (12.0-15.0); Lymphocytes % (A) 26.5 %; MCH 27.4 pg (27.0-32.0); MCHC 31.3 g/dL (32.0-37.0); MCV 87.6 fL (80.0-97.0); Mean Platelet Volume 11.2 fL (9.5-12.2); Monocytes # (A) 0.47 X 10*3/uL (0.20-1.00); Monocytes % (A) 5.2 %; Neutrophils # (A) 5.66 X 10*3/uL (1.80-7.70); Neutrophils % (A) 62.5 %; Platelet Count 240 X 10*3/uL (140-440); RBC 4.85 X 10*6/uL (4.10-5.20); RDW 13.5 % (11.5-14.5); WBC 9.05 X 10*3/uL (4.50-10.00)
[2021-03-29 03:18] LABS: African American GFR (CKD) 75.5 (60.0-200.0); Anion Gap 14.6 mmol/L (10.00-18.00); BUN/Creat Ratio 14.2 Ratio (12.00-20.00); Blood Urea Nitrogen 14.2 mg/dL (9.0-27.0); Calcium 9.2 mg/dL (8.7-10.3); Carbon Dioxide 21.4 mmol/L (20.0-27.5); Non-African American GFR(CKD) 65.2 (60.0-200.0); Potassium 4.4 mmol/L (3.5-5.5); Protein, Total 6.8 g/dL (6.2-8.2)
== END | disposition home or self-care (01) ==
LOC: LABWHC1 14:14
PROVIDERS: ATTEND Internal Medicine Hematology & Oncology
DX: I12.9 Hypertensive chronic kidney disease with stage 1 through stage 4 chronic kidney disease, or unspecified chronic kidney disease (principal); E11.22 Type 2 diabetes mellitus with diabetic chronic kidney disease; N18.9 Chronic kidney disease, unspecified; D47.2 Monoclonal gammopathy
CPT/HCPCS: 36415; 80048; 83883; 84165; 85025

== ENCOUNTER → 2021-06-16 | Outpatient (CLI) | payer OTHER ==
[2021-06-16 22:51] LABS: Basophils # (A) 0.05 X 10*3/uL (0.00-0.10); Basophils % (A) 0.6 %; Eosinophils # (A) 0.38 X 10*3/uL (0.04-0.35); Eosinophils % (A) 4.2 %; HCT 43.2 % (37.2-46.3); HGB 13.6 g/dL (12.0-15.0); Immature Grans, Automated 0.4 %; Lymphocytes # (A) 1.92 X 10*3/uL (0.90-5.00); Lymphocytes % (A) 21.4 %; MCH 27.5 pg (27.0-32.0); MCHC 31.5 g/dL (32.0-37.0); MCV 87.3 fL (80.0-97.0); Mean Platelet Volume 11.3 fL (9.5-12.2); Monocytes # (A) 0.46 X 10*3/uL (0.20-1.00); Monocytes % (A) 5.1 %; NRBC Per 100 WBC 0 /100 WBCS (0.0-0.0); Neutrophils # (A) 6.12 X 10*3/uL (1.80-7.70); Neutrophils % (A) 68.3 %; Platelet Count 176 X 10*3/uL (140-440); RBC 4.95 X 10*6/uL (4.10-5.20); RDW 13.9 % (11.5-14.5); WBC 8.97 X 10*3/uL (4.50-10.00)
[2021-06-17 00:36] LABS: ALT 20 U/L (8-44); AST 21 U/L (13-35); African American GFR (CKD) 65.2 (60.0-200.0); Albumin 4.2 g/dL (3.8-4.9); Albumin/Globulin Ratio 1.31 (1.60-3.17); Alkaline Phosphatase 114 U/L (41-126); BUN/Creat Ratio 13.89 Ratio (12.00-20.00); Blood Urea Nitrogen 15.7 mg/dL (9.0-27.0); Calcium 9.2 mg/dL (8.7-10.3); Carbon Dioxide 21.7 mmol/L (20.0-27.5); Chloride 102 mmol/L (96-109); Chol/HDL Ratio 4.62 Ratio; Creatine Kinase 68 U/L (26-186); Globulin 3.2 g/dL (1.6-3.3); Glucose 152 mg/dL (70-110); LDL Cholesterol,Calculated 95.4 mg/dL (0.0-131.0); Non-African American GFR(CKD) 56.2 (60.0-200.0); Potassium 4.1 mmol/L (3.5-5.5); Sodium 137 mmol/L (135-145); Total Protein 7.4 g/dL (6.2-8.2)
[2021-06-17 00:48] LABS: Appearance,Urine Clear (Clear); Bilirubin,Urine Negative (Negative); Blood,Urine Negative (Negative); Color,Urine Yellow (Yellow); Ketones,Urine Trace mg/dL (Negative); Leukocyte Esterase,Urine Negative (Negative); Nitrite,Urine Negative (Negative); PH, Urine 5.5 (5.0-8.0); Protein,Urine Negative (Negative); Urobilinogen,Urine 0.2 (0.2,1.0)
[2021-06-17 22:09] LABS: Microalbumin Creatinine Ratio <30 mg/g Creat (0-30)
--- NOTE | 2021-06-18 14:09 | MM ---
Reason for exam: screening (asymptomatic). Last mammogram was performed 1 year and 6 months ago. History: Patient history of other cancer. Family history of breast cancer in 3 paternal aunts. Took hormonal contraceptives for 1 year. Physical Findings: A clinical breast exam by your physician is recommended on an annual basis and results should be correlated with mammographic findings. MG Screening Mammo w CAD Bilateral CC and MLO view(s) were taken. Prior study comparison: December 08, 2019, bilateral MG screening mammo w CAD. November 02, 2018, bilateral MG screening mammo w CAD. Finding: There are typically benign grouped/clustered calcifications in the lower inner quadrant, middle position of the left breast. Asymmetric breast tissue greater in the left breast. No significant changes in finding since December 08, 2019 and November 02, 2018. ASSESSMENT: Benign, BI-RAD 2 RECOMMENDATION: Routine screening mammogram of both breasts in 1 year.
== END | disposition home or self-care (01) ==
LOC: RADMAMWWP 14:52
PROVIDERS: ATTEND Family Medicine
DX: Z12.31 Encounter for screening mammogram for malignant neoplasm of breast (principal); E11.65 Type 2 diabetes mellitus with hyperglycemia; I10 Essential (primary) hypertension; D51.9 Vitamin B12 deficiency anemia, unspecified; E55.9 Vitamin D deficiency, unspecified
CPT/HCPCS: 77067; 80053; 80061; 81003; 82043; 82306; 82550; 82570; 82607; 83036; 84443; 85025

== ENCOUNTER 2021-09-30 06:20 | Day surgery (SDC) | payer OTHER ==
[2021-09-29 08:25] VITALS: BMI 41.5
[~2021-09-30 06:20] MED LIST changes: +LIDOCAINE 1% (10MG/ML) FOR IV START INTRADERMA PRN; -LIDOCAINE 1% 20 ML VIAL (10MG/ML) FOR IV START INTRADERMA PRN; -LIDOCAINE 1% INJ 10MG/ML (20 ML MDV) ONE; -MIDAZOLAM 2 MG/2 ML VIAL ONE; -PROPOFOL 10 MG/ML 20 ML VIAL IV ONE; -fentaNYL (PF) 50 MCG/ML 2 ML AMP ONE
[2021-09-30 07:03] VITALS: TEMP 96.9
[2021-09-30 07:03] LABS: Glucose,Whole Blood 139 mg/dL (75-99)
[2021-09-30] MEDS ORDERED: PROPOFOL 10 MG/ML 20 ML VIAL IV ONE (07:21)
--- NOTE | 2021-09-30 07:41 | P.PCN ---
Date of Procedure: 09/30/21 Procedure(s) Performed: BRIEF HISTORY: Patient is a 51-year-old pleasant White female scheduled for an elective colonoscopy as a part of scheduled for colonoscopy as a part of evaluation of positive cologuard PROCEDURE PERFORMED: Colonoscopy.With biopsy and snare polypectomy PREOPERATIVE DIAGNOSIS: Positive cologuard. IV sedation per Anesthesia. PROCEDURE: After informed consent was obtained, the patient, was brought into the endoscopy unit. IV sedation was administered by Anesthesia under continuous monitoring. Digital rectal examination was normal. Initially the Olympus CF-160 flexible video colonoscope was then inserted in the rectum, gradually advanced into the cecum without any difficulty. Careful examination was performed as the scope was gradually being withdrawn. Ileocecal valve and the appendiceal orifice were visualized and appeared normal. Prep was excellent. Mucosa of the ce cum,appeared normal. In the ascending colon there was a 5 mm polyp that was removed by cold biopsy. In the descending colon there was a 1 segment of polyp removed by snare polypectomy. In the sigmoid colon there was a 3 mm polyp that was removed by cold biopsy. Rest of the ascending colon, transverse colon, descending colon, sigmoid colon, and rectum appeared normal. Retroflexion was performed in the rectum and no lesions were seen. The patient tolerated the procedure well. IMPRESSION: 5 mm ascending colon polyp status post cold biopsy 1 cm descending colon polyp status post snare polypectomy 3 mmsigmoid colon polyp status post cold biopsy RECOMMENDATIONS: Findings of this examination were discussed with the patient as well as her family. She was advised to follow with the biopsy results. If the biopsy results adenoma she can have a repeat colonoscopy in 3 years in 3 years.
[2021-09-30 07:58] VITALS: BP 120/79; PULSE 79; RESP 18
== END 2021-09-30 08:15 | disposition home or self-care (01) ==
LOC: ORWHC2ENDO 06:20
PROVIDERS: ATTEND Internal Medicine Gastroenterology
DX: D12.4 Benign neoplasm of descending colon (principal); D12.2 Benign neoplasm of ascending colon; K63.5 Polyp of colon; E11.40 Type 2 diabetes mellitus with diabetic neuropathy, unspecified; Z88.2 Allergy status to sulfonamides
CPT/HCPCS: 45385; 45380; 81025; 88305; J2704

== ENCOUNTER → 2021-10-09 | Outpatient (CLI) | payer OTHER ==
[2021-10-09 15:06] LABS: Basophils # (A) 0.07 X 10*3/uL (0.00-0.10); Basophils % (A) 0.6 %; Eosinophils # (A) 0.46 X 10*3/uL (0.04-0.35); Eosinophils % (A) 4.1 %; HCT 41.3 % (37.2-46.3); HGB 13.2 g/dL (12.0-15.0); Immature Grans, Automated 0.4 %; Lymphocytes # (A) 3.27 X 10*3/uL (0.90-5.00); Lymphocytes % (A) 29.3 %; MCV 87.7 fL (80.0-97.0); Mean Platelet Volume 10.7 fL (9.5-12.2); Monocytes # (A) 0.53 X 10*3/uL (0.20-1.00); Monocytes % (A) 4.8 %; NRBC Per 100 WBC 0 /100 WBCS (0.0-0.0); Neutrophils # (A) 6.78 X 10*3/uL (1.80-7.70); Neutrophils % (A) 60.8 %; Platelet Count 203 X 10*3/uL (140-440); RBC 4.71 X 10*6/uL (4.10-5.20); RDW 13.5 % (11.5-14.5); WBC 11.15 X 10*3/uL (4.50-10.00)
[2021-10-09 15:39] LABS: ALT 19 U/L (8-44); AST 20 U/L (13-35); African American GFR (CKD) 75.5 (60.0-200.0); Albumin 4.3 g/dL (3.8-4.9); Albumin/Globulin Ratio 1.65 (1.60-3.17); Alkaline Phosphatase 108 U/L (41-126); Blood Urea Nitrogen 17.2 mg/dL (9.0-27.0); Calcium 9.4 mg/dL (8.7-10.3); Carbon Dioxide 27.7 mmol/L (20.0-27.5); Chloride 103 mmol/L (96-109); Chol/HDL Ratio 3.84 Ratio; Creatine Kinase 91 U/L (26-186); Globulin 2.6 g/dL (1.6-3.3); Glucose 134 mg/dL (70-110); LDL Cholesterol,Calculated 58.6 mg/dL (0.0-131.0); Non-African American GFR(CKD) 65.2 (60.0-200.0); Potassium 4.5 mmol/L (3.5-5.5); Sodium 138 mmol/L (135-145); Total Protein 6.9 g/dL (6.2-8.2)
== END | disposition home or self-care (01) ==
LOC: LABWHC1 10:59
PROVIDERS: ATTEND Family Medicine
DX: E11.22 Type 2 diabetes mellitus with diabetic chronic kidney disease (principal); E11.65 Type 2 diabetes mellitus with hyperglycemia; N18.31 Chronic kidney disease, stage 3a
CPT/HCPCS: 36415; 80053; 80061; 82550; 83036; 83970; 84443; 85025

== ENCOUNTER 2022-02-03 01:55 | Emergency (ER) | payer OTHER ==
[2022-02-03 01:59] VITALS: RESP 18; TEMP 97.8
[2022-02-03] MEDS ORDERED: ORPHENADRINE 30 MG/ML 2 ML VIAL IM STA (03:19)
--- NOTE | 2022-02-03 03:24 | ED ---
Back Pain [facility] - General Chief Complaint: Back Pain/Injury Stated Complaint: back pain Time Seen by Provider: 02/03/22 03:09 Source: patient, RN notes reviewed - History of Present Illness Initial Comments: This is a 51-year-old female with a history of chronic and recurrent back pain. She presents to the emergency department tonight stating that she has a spasm- like pain in her right lower back which is exacerbated by movement and somewhat alleviated by position. Patient denying any changes in bowel movements or urination. No radicular pain. There was no direct trauma. No headache, no fever or chills, no changes in vision or hearing, no sore throat or difficulty with speech, no neck pain, no chest pain or shortness of breath, no abdominal pain, no nausea or vomiting, no changes in urination or bowel movements, no numbness or tingling, no extremity pain, no skin rashes or lesions. Past medical, surgical, social, and family history reviewed. MD Complaint: back pain - Related Data Home Medications Medication Instructions Recorded Confirmed Bisoprolol-Hctz 5-6.25 mg [Ziac 1 tab PO QAM 02/11/16 09/29/21 5-6.25] Venlafaxine HCl ER [Effexor Xr] 150 mg PO QAM 02/11/16 09/29/21 Calcium Carbonate 1,000 mg PO DAILY 09/29/21 09/29/21 Cholecalciferol [Vitamin D3 (25 25 mcg PO DAILY 09/29/21 09/29/21 Mcg = 1000 Iu)] Gabapentin [Neurontin] 100 mg PO TID 09/29/21 09/29/21 Iron 45 mg PO DAILY 09/29/21 09/29/21 Losartan Potassium [Cozaar] 25 mg PO QAM 09/29/21 09/29/21 Magnesium 400 mg PO DAILY 09/29/21 09/29/21 Potassium 540 mg PO DAILY 09/29/21 09/29/21 Rosuvastatin [Crestor] 10 mg PO BANEGAS 09/29/21 09/29/21 Zinc 25 mg PO DAILY 09/29/21 09/29/21 Previous Rx's Medication Instructions Recorded Baclofen [Lioresal] 5 mg PO TID #20 tablet 02/03/22 methylPREDNISolone Dose Pack 4 mg PO DIRECTED #21 tab 10/11/22 [Medrol Dose Pack] Allergies Allergy/AdvReac Type Severity Reaction Status Date / Time pregabalin [From Lyrica] Allergy SWELLING Verified 02/03/22 02:00 LEG, ANKLES acetaminophen [From Vicodin] AdvReac Rash/Hives Verified 02/03/22 02:00 codeine AdvReac Itching Verified 02/03/22 02:00 [From Tylenol-Codeine #3] hydrocodone bitartrate AdvReac Rash/Hives Verified 02/03/22 02:00 [From Vicodin] morphine AdvReac Itching Verified 02/03/22 02:00 Penicillins AdvReac Rash/Hives Verified 02/03/22 02:00 Review of Systems ROS Statement: Those systems with pertinent positive or pertinent negative responses have been documented in the HPI. ROS Other: All systems not noted in ROS Statement are negative. Past Medical History Past Medical History: Diabetes Mellitus, Hearing Disorder / Deafness, Hyperlipidemia, Hypertension, Neurologic Disorder, Osteoarthritis (OA), Sleep Apnea/CPAP/BIPAP Additional Past Medical History / Comment(s): Migraines, chronic back pain. No CPAP use currently. "Heart flutter". Hx precancer of the cervix. Stage 3 kidney disease, only has right kidney, functioning at 50%. Neuropathy in legs and arms. Eczema. Varicose veins in legs. Diet controlled diabetes. Hard of heading bilateral ears. History of Any Multi-Drug Resistant Organisms: None Reported Past Surgical History: Back Surgery Additional Past Surgical History / Comment(s): Perianal surgery, left kidney removed. Past Anesthesia/Blood Transfusion Reactions: Family History of Problems w/ Anesthesia, Motion Sickness Additional Past Anesthesia/Blood Transfusion Reaction / Comment(s): BROTHER "IS HARD TO PUT UNDER AND HARD TO WAKE UP." Past Psychological History: Anxiety, Depression Smoking Status: Former smoker Past Alcohol Use History: Rare Past Drug Use History: Marijuana - Past Family History Mother Family Medical History: No Reported History General Exam - General Exam Comments Initial Comments: Vital signs reviewed, essentially stable. Patient does not appear to be ill or toxic. In distress from back pain. General appearance: in distress Head exam: Present: atraumatic, normocephalic, normal inspection Eye exam: Present: normal appearance, EOMI Neck exam: Present: normal inspection, full ROM Respiratory exam: Present: normal lung sounds bilaterally. Absent: respiratory distress, wheezes, rales, rhonchi, stridor Cardiovascular Exam: Present: regular rate, normal rhythm, normal heart sounds. Absent: systolic murmur, diastolic murmur, rubs, gallop, clicks GI/Abdominal exam: Present: soft. Absent: tenderness Back exam: Present: tenderness (Patient tender the right lumbar paraspinals.), paraspinal tenderness (Right lumbar). Absent: full ROM (Range of motion limited by pain), vertebral tenderness, rash noted Neurological exam: Present: alert, oriented X3, CN II-XII intact, reflexes normal. Absent: motor sensory deficit Psychiatric exam: Present: normal affect, normal mood Skin exam: Present: warm, dry, intact, normal color. Absent: rash, erythema, pallor, mottled Course Vital Signs 02/03/22 01:57 Temperature 97.8 F Pulse Rate 66 Respiratory 18 Rate Blood Pressure 142/88 O2 Sat by Pulse 98 Oximetry Medical Decision Making - Medical Decision Making Patient presents with acute exacerbation of chronic low back pain. Patient is on Neurontin 300 mg 3 times a day. Patient currently has no muscle relaxers at home. I'm going to order Norflex 60 mg intramuscular and Valium 5 mg intramuscular. Patient has multiple medication sensitivities. We will review with the patient. Patient shows no evidence of cauda equina syndrome. -There are no red flags for concerning back pathology. Specifically: -No history of cancer, this is not a mass effect, MRI not indicated. -No anticoagulation, this is not a bleed. -No fevers, no IVDU, this is not an infectious process. -No trauma, no bony pain, x-rays are not indicated. -With a normal neuro exam, and no urinary or bowel retention or incontinence, there is no clinical sign of motor defect or cauda equina - MRI is not indicated at this point. -No pulsating abdominal mass or risk factors for AAA. -Pain is relieved with rest, which is also less concerning. -I do not believe that x-rays or emergent MRI is indicated at this time. -We will treat symptomatically and discharge home with follow up instructions. -Stretching/strengthening exercise given to patient and they will be referred to physical therapy -Patient is instructed to use [id number] analgesics as directed on packaging for pain. I did give him 1 Percocet 7.5/325 here today. Agreed to a Medrol Dosepak and muscle relaxers. Patient does have a history of one functional kidney. However previous renal function was normal. Patient's liver functions are. I did review all of the medication sensitivities with the patient. Does not appear that any of the narcotic sensitivities are true ALLERGIES, likely caused by histamine release as the patient has tolerated Percocet in the past. Advised blood sugar monitoring on the Medrol Dosepak, patient is a diet-controlled diabetic. [employer] Dr. Melgar Disposition Clinical Impression: Acute exacerbation of chronic low back pain Disposition: HOME SELF-CARE Condition: Good Instructions (If sedation given, give patient instructions): Chronic Back Pain (DC) Additional Instructions: Be sure to monitor your blood sugars while taking the steroid pack. Call your regular physician tomorrow morning for further guidance on pain control. You can also use [id number] extra strength Tylenol as directed on the bottle for additional pain control. Follow-up with your regular physician as directed. Return to the ER immediately if any symptoms worsen, new symptoms arise, or any other problems develop. Prescriptions: Baclofen [Lioresal] 5 mg PO TID #20 tablet methylPREDNISolone Dose Pack [Medrol Dose Pack] 4 mg PO DIRECTED #21 tab Is patient prescribed a controlled substance at d/c from ED?: No Referrals: Francine Sargent MD [Primary Care Provider] - 02/03/22 8:00 am Benny Salvador DO [Doctor of Osteopathic Medicine] - 02/06/22 Time of Disposition: 03:51
[2022-02-03] MEDS ORDERED: oxyCODONE-APAP 7.5-325MG 1 EACH TAB PO STA (03:45)
[2022-02-03 04:35] VITALS: BP 113/63; PULSE 63
== END 2022-02-03 04:33 | disposition home or self-care (01) ==
LOC: EC 01:55
DX: M54.50 Low back pain, unspecified (principal); G89.29 Other chronic pain; E11.9 Type 2 diabetes mellitus without complications; I10 Essential (primary) hypertension; E78.5 Hyperlipidemia, unspecified; Z88.0 Allergy status to penicillin; Z88.6 Allergy status to analgesic agent; Z88.5 Allergy status to narcotic agent; Z87.891 Personal history of nicotine dependence
CPT/HCPCS: 99283; 96372; J2360; J3360

== ENCOUNTER → 2022-02-23 | Outpatient (CLI) | payer OTHER ==
[2022-02-23 23:43] LABS: African American GFR (CKD) 73.8 (60.0-200.0); Albumin/Globulin Ratio 1.61 (1.60-3.17); Anion Gap 9.5 mmol/L (10.00-18.00); BUN/Creat Ratio 13.63 Ratio (12.00-20.00); Blood Urea Nitrogen 13.9 mg/dL (9.0-27.0); Calcium 8.9 mg/dL (8.7-10.3); Carbon Dioxide 25.9 mmol/L (20.0-27.5); Globulin 2.5 g/dL (1.6-3.3); HDL Cholesterol 35.8 mg/dL (40.00-60.00); LDL Cholesterol,Calculated 41.2 mg/dL (0.0-131.0); Non-African American GFR(CKD) 63.6 (60.0-200.0); Potassium 4.9 mmol/L (3.5-5.5); Total Bilirubin 0.2 mg/dL (0.30-1.20); Total Protein 6.4 g/dL (6.2-8.2)
[2022-02-23 23:54] LABS: Chol/HDL Ratio 4.39 Ratio; LDL Cholesterol,Direct Reflex 63.7 mg/dL (0.00-129.00)
[2022-02-24 09:57] LABS: Basophils # (A) 0.07 X 10*3/uL (0.00-0.10); Basophils % (A) 0.8 %; Eosinophils # (A) 0.38 X 10*3/uL (0.04-0.35); Eosinophils % (A) 4.1 %; HCT 41.9 % (37.2-46.3); HGB 13.3 g/dL (12.0-15.0); Immature Grans, Automated 0.3 %; Lymphocytes # (A) 2.18 X 10*3/uL (0.90-5.00); Lymphocytes % (A) 23.5 %; MCH 28.1 pg (27.0-32.0); MCHC 31.7 g/dL (32.0-37.0); MCV 88.4 fL (80.0-97.0); Mean Platelet Volume 11.2 fL (9.5-12.2); Monocytes # (A) 0.46 X 10*3/uL (0.20-1.00); NRBC Per 100 WBC 0 /100 WBCS (0.0-0.0); Neutrophils # (A) 6.15 X 10*3/uL (1.80-7.70); Neutrophils % (A) 66.3 %; Platelet Count 165 X 10*3/uL (140-440); RBC 4.74 X 10*6/uL (4.10-5.20); RDW 13.2 % (11.5-14.5); WBC 9.27 X 10*3/uL (4.50-10.00)
== END | disposition home or self-care (01) ==
LOC: LABWHC1 15:38
PROVIDERS: ATTEND Family Medicine
DX: E11.22 Type 2 diabetes mellitus with diabetic chronic kidney disease (principal); E11.65 Type 2 diabetes mellitus with hyperglycemia; N18.31 Chronic kidney disease, stage 3a; E78.2 Mixed hyperlipidemia
CPT/HCPCS: 36415; 80053; 80061; 83036; 83721; 84443; 85025

== ENCOUNTER → 2022-03-05 | Outpatient (CLI) | payer OTHER ==
--- NOTE | 2022-03-06 07:25 | US ---
EXAMINATION TYPE: US transvaginal DATE OF EXAM: 03/05/2022 COMPARISON:02/07/2016 CLINICAL HISTORY: N92.0. Patient states having generalized pelvic pain during menses. TECHNIQUE: Transvaginal (TV). Date of LMP: 02/25/2022, EXAM MEASUREMENTS: Uterus: 9.5 x 5.9 x 5.0 cm Endometrial Stripe: 0.4 cm Right Ovary: 1.8 x 1.6 x 1.5 cm Left Ovary: 3.9 x 3.2 x 2.5 cm 1. Uterus: Anteverted Heterogenous. Multiple fibroids seen with largest two measured ; 1= right f undal = 2.8 x 2.9 x 2.5 cm and 2= right mid = 1.2 x 1.5 x 1.2 cm. 2. Endometrium: wnl 3. Right Ovary: wnl 4. Left Ovary: Multiple cystic lesions seen. Largest with internal echoes = 2.7 x 2.5 x 1.9 cm 5. Bilateral Adnexa: no free fluid 6. Posterior cul-de-sac: no free fluid IMPRESSION: Leiomyomatous change of the uterus. 2. Complex cyst left ovary may reflect hemorrhagic cyst. Consider follow-up study in 6 weeks.
== END | disposition home or self-care (01) ==
LOC: RADUSWWP 17:05
PROVIDERS: ATTEND Family Medicine
DX: N83.292 Other ovarian cyst, left side (principal)
CPT/HCPCS: 76830

== ENCOUNTER → 2022-10-29 | Outpatient (CLI) | payer OTHER ==
[2022-10-29 16:33] LABS: Basophils # (A) 0.04 X 10*3/uL (0.00-0.10); Basophils % (A) 0.5 %; Eosinophils # (A) 0.43 X 10*3/uL (0.04-0.35); Eosinophils % (A) 5.3 %; HCT 40.2 % (37.2-46.3); Lymphocytes # (A) 1.86 X 10*3/uL (0.90-5.00); Lymphocytes % (A) 23.1 %; MCH 28.4 pg (27.0-32.0); MCHC 32.3 d/dL (32.0-37.0); Mean Platelet Volume 10.9 FL (9.5-12.2); Monocytes # (A) 0.47 X 10*3/uL (0.20-1.00); Monocytes % (A) 5.8 %; NRBC Per 100 WBC 0 X 10*3/uL (0.00-0.01); Neutrophils # (A) 5.22 X 10*3/uL (1.80-7.70); Neutrophils % (A) 64.9 %; Platelet Count 188 X 10*3/uL (140-440); RBC 4.57 X 10*6/uL (4.10-5.20); RDW 13.2 % (11.5-14.5); WBC 8.05 X 10*3/uL (4.50-10.00)
[2022-10-29 21:38] LABS: ALT 23 U/L (8-44); AST 25 U/L (13-35); Albumin 4.2 d/dL (3.8-4.9); Albumin/Globulin Ratio 1.68 Ratio (1.60-3.17); Alkaline Phosphatase 111 U/L (41-126); BUN/Creat Ratio 13.83 Ratio (12.00-20.00); Blood Urea Nitrogen 16.6 mg/dL (9.0-27.0); Calcium 9.3 mg/dL (8.7-10.3); Carbon Dioxide 24.5 mmol/L (21.6-31.8); Chloride 103 mmol/L (96-109); Chol/HDL Ratio 3.67 Ratio; Globulin 2.5 d/dL (1.6-3.3); Glucose 140 mg/dL (70-110); LDL Cholesterol,Calculated 69.6 mg/dL (0.0-131.0); Potassium 4.7 mmol/L (3.5-5.5); Sodium 140 mmol/L (135-145); Total Bilirubin 0.5 mg/dL (0.3-1.2); Total Protein 6.7 d/dL (6.2-8.2)
[2022-10-29 22:18] LABS: Microalbumin Creatinine Ratio <9 mg/g Cr (0-30)
== END | disposition home or self-care (01) ==
LOC: LABWHC1 12:14
PROVIDERS: ATTEND Family Medicine
DX: E11.65 Type 2 diabetes mellitus with hyperglycemia (principal); E11.22 Type 2 diabetes mellitus with diabetic chronic kidney disease; N18.31 Chronic kidney disease, stage 3a; E78.2 Mixed hyperlipidemia; N92.0 Excessive and frequent menstruation with regular cycle
CPT/HCPCS: 36415; 80053; 80061; 82043; 82570; 83036; 84443; 85025

== ENCOUNTER → 2023-07-15 | Outpatient (CLI) | payer OTHER ==
[2023-07-15 16:14] LABS: ALT 16 U/L (8-44); AST 23 U/L (13-35); Albumin 4.3 g/dL (3.8-4.9); Albumin/Globulin Ratio 1.39 Ratio (1.60-3.17); Alkaline Phosphatase 114 U/L (41-126); BUN/Creat Ratio 12.46 Ratio (12.00-20.00); Blood Urea Nitrogen 16.2 mg/dL (9.0-27.0); Calcium 9.6 mg/dL (8.7-10.3); Carbon Dioxide 27.9 mmol/L (21.6-31.8); Chloride 101 mmol/L (96-109); Chol/HDL Ratio 3.92 Ratio; Globulin 3.1 g/dL (1.6-3.3); Glucose 103 mg/dL (70-110); LDL Cholesterol,Calculated 70.4 mg/dL (0.0-131.0); Potassium 4.1 mmol/L (3.5-5.5); Sodium 140 mmol/L (135-145); Total Bilirubin 0.4 mg/dL (0.3-1.2); Total Protein 7.4 g/dL (6.2-8.2)
[2023-07-15 16:37] LABS: Basophils # (A) 0.07 X 10*3/uL (0.00-0.10); Basophils % (A) 0.7 %; Eosinophils # (A) 0.56 X 10*3/uL (0.04-0.35); Eosinophils % (A) 5.9 %; HCT 42.1 % (37.2-46.3); HGB 13.4 g/dL (12.0-15.0); Lymphocytes % (A) 25.3 %; MCHC 31.8 g/dL (32.0-37.0); MCV 87.9 FL (80.0-97.0); Mean Platelet Volume 10.6 FL (9.5-12.2); Monocytes # (A) 0.53 X 10*3/uL (0.20-1.00); Monocytes % (A) 5.6 %; NRBC Per 100 WBC 0 X 10*3/uL (0.00-0.01); Neutrophils # (A) 5.91 X 10*3/uL (1.80-7.70); Neutrophils % (A) 62.2 %; Platelet Count 243 X 10*3/uL (140-440); RBC 4.79 X 10*6/uL (4.10-5.20); RDW 13.6 % (11.5-14.5)
== END | disposition home or self-care (01) ==
LOC: LABWHC1 09:29
PROVIDERS: ATTEND Family Medicine
DX: I12.9 Hypertensive chronic kidney disease with stage 1 through stage 4 chronic kidney disease, or unspecified chronic kidney disease (principal); E78.2 Mixed hyperlipidemia; E11.22 Type 2 diabetes mellitus with diabetic chronic kidney disease; N18.31 Chronic kidney disease, stage 3a
CPT/HCPCS: 36415; 80053; 80061; 83036; 84443; 85025

== ENCOUNTER → 2024-01-07 | Outpatient (CLI) | payer BC ==
[2024-01-07 15:05] LABS: Basophils # (A) 0.05 X 10*3/uL (0.00-0.10); Basophils % (A) 0.6 %; Eosinophils # (A) 0.48 X 10*3/uL (0.04-0.35); Eosinophils % (A) 5.7 %; HCT 40.2 % (37.2-46.3); HGB 12.5 g/dL (12.0-15.0); Lymphocytes # (A) 1.98 X 10*3/uL (0.90-5.00); Lymphocytes % (A) 23.5 %; MCHC 31.1 g/dL (32.0-37.0); MCV 90.1 FL (80.0-97.0); Mean Platelet Volume 10.7 FL (9.5-12.2); Monocytes # (A) 0.48 X 10*3/uL (0.20-1.00); Monocytes % (A) 5.7 %; NRBC Per 100 WBC 0 X 10*3/uL (0.00-0.01); Neutrophils # (A) 5.43 X 10*3/uL (1.80-7.70); Neutrophils % (A) 64.3 %; Platelet Count 243 X 10*3/uL (140-440); RBC 4.46 X 10*6/uL (4.10-5.20); RDW 14.2 % (11.5-14.5); WBC 8.44 X 10*3/uL (4.50-10.00)
[2024-01-07 15:24] LABS: ALT 13 U/L (8-44); AST 18 U/L (13-35); Albumin/Globulin Ratio 1.48 Ratio (1.60-3.17); Alkaline Phosphatase 101 U/L (41-126); BUN/Creat Ratio 17.36 Ratio (12.00-20.00); Blood Urea Nitrogen 19.1 mg/dL (9.0-27.0); Calcium 9.1 mg/dL (8.7-10.3); Carbon Dioxide 25.7 mmol/L (21.6-31.8); Chloride 101 mmol/L (96-109); Chol/HDL Ratio 3.89 Ratio; Globulin 2.7 g/dL (1.6-3.3); Glucose 119 mg/dL (70-110); LDL Cholesterol,Calculated 84.9 mg/dL (0.0-131.0); Potassium 4.1 mmol/L (3.5-5.5); Sodium 138 mmol/L (135-145); Total Bilirubin 0.3 mg/dL (0.3-1.2); Total Protein 6.7 g/dL (6.2-8.2)
[2024-01-07 21:00] LABS: Microalbumin Creatinine Ratio <13 mg/g Cr (0-30); Urine Creatinine 94.9 mg/dL (28.0-217.0)
== END | disposition home or self-care (01) ==
LOC: LABWHC1 08:51
PROVIDERS: ATTEND Family Medicine
DX: E11.65 Type 2 diabetes mellitus with hyperglycemia (principal); E11.22 Type 2 diabetes mellitus with diabetic chronic kidney disease; N18.31 Chronic kidney disease, stage 3a; E78.2 Mixed hyperlipidemia
CPT/HCPCS: 36415; 80053; 80061; 82043; 82570; 83036; 84443; 85025